=== PATIENT | female | born 1985 | race African-American/Black ===

== ENCOUNTER 2018-04-08 13:42 | Emergency (ER) | payer MEDICAID, OTHER ==
[~2018-04-08] VITALS: Ht 165.1 cm; Wt 73.0 kg
[2018-04-08 13:53] VITALS: BP 136/79
[2018-04-08] MEDS ORDERED: IBUPROFEN 200MG TABLET ONE (14:00)
== END 2018-04-08 14:30 | disposition home or self-care (01) ==
LOC: ER 14:13
DX: S39.012A Strain of muscle, fascia and tendon of lower back, initial encounter (principal); F17.200 Nicotine dependence, unspecified, uncomplicated; V49.88XA Car occupant (driver) (passenger) injured in other specified transport accidents, initial encounter; Y93.89 Activity, other specified; Y92.410 Unspecified street and highway as the place of occurrence of the external cause; Y99.8 Other external cause status
CPT/HCPCS: 99282